=== PATIENT | male | born 1960 | race Asian ===

== ENCOUNTER 2017-11-21 16:06 | Inpatient (IN) | payer OTHER ==
[~2017-11-21] VITALS: Ht 172.7 cm; Wt 56.7 kg
[2017-11-21] VITALS (7 sets, daily range): BP systolic 120–155; BP diastolic 56–90
[2017-11-21] MEDS ORDERED: PROAIR HFA8.5 GM INH (16:22)
[2017-11-21] MEDS ORDERED: PREDNISONE10 M2 PO (16:22)
[2017-11-21] MEDS ORDERED: ZITHROMAX TRI-500 MG ORAL (16:22)
[2017-11-21] MEDS ORDERED: PHENERGAN SUPP25 MG ORAL (16:22)
[2017-11-21] MEDS ORDERED: Isovue-300 100ml vial INJ PRN (16:30)
[2017-11-21 17:01] LABS: BASOPHILS % (AUTO) 0.2 % (0.0-2.0); HEMATOCRIT 42.3 % (42.0-52.0); HEMOGLOBIN 14.7 G/DL (14.2-18.0); MEAN CORPUSCULAR VOLUME 92 FL (80-99); MONOCYTES % (AUTO) 4.1 % (1.0-10.0); NEUTROPHILS % (AUTO) 84.7 % (45.0-75.0); PLATELET COUNT 284 K/UL (150-450); RED CELL DISTRIBUTION WIDTH 11.8 % (11.6-14.8); WHITE BLOOD COUNT 8.4 K/UL (4.8-10.8)
--- NOTE | 2017-11-21 17:03 | Diagnostic Imaging Report ---
Indication: Abnormal chest x-ray seen at the doctor's office. Pneumothorax Comparison: None A single view chest radiograph was obtained. Findings: A large left pneumothorax demonstrated. There is no evidence of tension or shift of the mediastinum. The trachea is midline. Heart size is normal. Patient is asymptomatic. Right lung is clear. Bones are osteopenic. There is an old healed fracture of the left clavicle. Dr. Weston is aware of the results. IMPRESSION: Large left pneumothorax
[2017-11-21 17:09] LABS: ANION GAP 7 mmol/L (5-15); BLOOD UREA NITROGEN 17 mg/dL (7-18); CALCIUM 11.7 MG/DL (8.5-10.1); CARBON DIOXIDE 27 MMOL/L (21-32); CHLORIDE 107 MMOL/L (98-107); CREATININE 1.2 MG/DL (0.55-1.30); POTASSIUM 3.7 MMOL/L (3.5-5.1); SODIUM 141 MMOL/L (136-145)
[2017-11-21 17:22] LABS: ALANINE AMINOTRANSFERASE 27 U/L (12-78); ALBUMIN 3.4 G/DL (3.4-5.0); ALBUMIN/GLOBULIN RATIO 0.9 (1.0-2.7); ALKALINE PHOSPHATASE 172 U/L (46-116); ASPARTATE AMINO TRANSFERASE 16 U/L (15-37); BILIRUBIN,TOTAL 0.2 MG/DL (0.2-1.0); CKMB 0.5 NG/ML (0.0-3.6)
[2017-11-21] MEDS ORDERED: Lidocaine 1% Plain 30 ml INJ ONE (17:45)
[2017-11-21] MEDS ORDERED: PROMETHAZI6.25 MG/1 ORAL (19:09)
--- NOTE | 2017-11-21 19:19 | Emergency Room Report ---
History of Present Illness General Chief Complaint: Abnormal Labs Source: Patient Present Illness [facility] This patient was sent over by his primary care physician Dr. Bowman. He was being evaluated in the clinic and was found to have a pneumothorax on chest x- ray. He is sent in for further evaluation. He states that he has had some shortness of breath couple weeks ago. He states he feels fine today. He denies chest pain. He denies fever or chills. He has had cough and bronchitis like symptoms for the past 2 weeks. He was evaluated at an outpatient clinic earlier this week and was instructed to follow-up with his primary care physician. He does smoke tobacco. He has no other complaints. Allergies: Coded Allergies: No Known Allergies (Unverified , 11/21/17) Patient History Past Medical History: see triage record, asthma Social History: Reports: smoking; Denies: alcohol use, drug use Reviewed Nursing Documentation: PMH: Agreed; PSxH: Agreed Nursing Documentation-PMH Past Medical History: No History, Except For Review of Systems All Other Systems: negative except mentioned in HPI Physical Exam Vital Signs Date Time Temp Pulse Resp B/P (MAP) Pulse Ox O2 Delivery O2 Flow Rate FiO2 11/21/17 16:14 98.0 83 16 141/86 96 Room Air 98.1 Sp02 EP Interpretation: reviewed, normal General Appearance: no apparent distress, alert, GCS 15, non-toxic Head: normocephalic, atraumatic Eyes: bilateral eye normal inspection, bilateral eye PERRL ENT: hearing grossly normal, normal pharynx, no angioedema, normal voice Neck: full range of motion, supple/symm/no masses Respiratory: chest non-tender, lungs clear, no respiratory distress, no retraction, no accessory muscle use, speaking full sentences, other - No breath sound on L. lung manley. Cardiovascular #1: regular rate, rhythm, no edema Gastrointestinal: normal bowel sounds, non tender, soft, non-distended, no guarding, no rebound Rectal: deferred Musculoskeletal: back normal, gait/station normal, normal range of motion, non- tender Neurologic: alert, oriented x3, responsive, motor strength/tone normal, sensory intact, speech normal Psychiatric: judgement/insight normal, memory normal, mood/affect normal, no suicidal/homicidal ideation Skin: normal color, no rash, warm/dry, well hydrated Procedures Chest Tube Chest Tube : Consent: Verbal Chest Tube Location: midclavicular line superior to the 3rd Rib Chest Tube Procedure: betadine prep, sterile drapes applied, sterile dressing applied Anesthesia: 1% Lidocaine Volume Anesthetic (ccs): 5 Ramirez of Air [place]: Yes Number of Attempts: One Tube Drainage: see nurses notes Post Procedure CXR?: Yes Patient Tolerated: Well Complications: None Progress A thoracic vent kit was used to insert the thoracic catheter at the mid clavicular line just superior to the third rib in the standard fashion. There were no complications. The tubing was attached to a Pleur-evac system. Postprocedure chest x-ray shows inflation of the previously deflated lung. Medical Decision Making Diagnostic Impression: Primary Impression: Acute pneumothorax ER Course This patient presents with a spontaneous pneumothorax. This is a very large pneumothorax of about 80% of the left lung. A thoracic vent was placed without complication or incident. The lung reexpanded after the procedure. The tubing was connected to a Pleur-evac system. The patient will be admitted to the ICU step down for further monitoring. Also, after reinflation of the lung there was an area of mild opacification that could represent pneumonia. Therefore, I did give the patient a dose of IV antibiotics. He is admitted for further evaluation and treatment. This patient is critically ill. This patient required complex medical decision- making, aggressive intervention, extensive laboratory workup and monitoring. Critical care time: 40 minutes. Laboratory Tests Test 11/21/17 16:35 White Blood Count 8.4 K/UL (4.8-10.8) Red Blood Count 4.60 M/UL (4.70-6.10) L Hemoglobin 14.7 G/DL (14.2-18.0) Hematocrit 42.3 % (42.0-52.0) Mean Corpuscular Volume 92 FL (80-99) Mean Corpuscular Hemoglobin 31.9 PG (27.0-31.0) H Mean Corpuscular Hemoglobin Concent 34.7 G/DL (32.0-36.0) Red Cell Distribution Width 11.8 % (11.6-14.8) Platelet Count 284 K/UL (150-450) Mean Platelet Volume 6.8 FL (6.5-10.1) Neutrophils (%) (Auto) 84.7 % (45.0-75.0) H Lymphocytes (%) (Auto) 11.0 % (20.0-45.0) L Monocytes (%) (Auto) 4.1 % (1.0-10.0) Eosinophils (%) (Auto) 0.0 % (0.0-3.0) Basophils (%) (Auto) 0.2 % (0.0-2.0) Prothrombin Time 10.2 SEC (9.30-11.50) Prothrombin Time INR 1.0 (0.9-1.1) PTT 26 SEC (23-33) Sodium Level 141 MMOL/L (136-145) Potassium Level 3.7 MMOL/L (3.5-5.1) Chloride Level 107 MMOL/L (98-107) Carbon Dioxide Level 27 MMOL/L (21-32) Anion Gap 7 mmol/L (5-15) Blood Urea Nitrogen 17 mg/dL (7-18) Creatinine 1.2 MG/DL (0.55-1.30) Estimate Glomerular Filtration Rate > 60 mL/min (>60) Glucose Level 214 MG/DL (74-106) H Calcium Level 11.7 MG/DL (8.5-10.1) H Total Bilirubin 0.2 MG/DL (0.2-1.0) Aspartate Amino Transferase (AST) 16 U/L (15-37) Alanine Aminotransferase (ALT) 27 U/L (12-78) Alkaline Phosphatase 172 U/L (46-116) H Creatine Kinase MB 0.5 NG/ML (0.0-3.6) Troponin I 0.000 ng/mL (0.000-0.056) Total Protein 7.0 G/DL (6.4-8.2) Albumin 3.4 G/DL (3.4-5.0) Globulin 3.6 g/dL Albumin/Globulin Ratio 0.9 (1.0-2.7) L EKG Diagnostic Results Rate: normal Rhythm: NSR ST Segments: no acute changes Rhythm Strip Diag. Results EP Interpretation: yes Rate: 70's Rhythm: NSR, no PVC's, no ectopy Chest X-Ray Diagnostic Results Chest X-Ray Diagnostic Results : Chest X-Ray Ordered: Yes # of Views/Limited/Complete: 1 View Indication: Other - PTX EP Interpretation: Yes Interpretation: other - Large L. PTX Impression: Other - PTX Electronically Signed by: Dante Other X-Ray Diagnostic Results Other X-Ray Diagnostic Results : X-Ray ordered: Repeat CXR after Chest tube # of Views/Limited Vs Complete: 1 View Indication: Other - Procedure Interpretation: other - Reinflation of the L. lung Impression: Other - See above Last Vital Signs Date Time Temp Pulse Resp B/P (MAP) Pulse Ox O2 Delivery O2 Flow Rate FiO2 11/21/17 18:00 76 26 137/88 97 Room Air 11/21/17 16:14 98.0 98.1 Status: improved Disposition: ADMITTED INPATIENT Condition: Serious Referrals: Siddharth Bowman MD (PCP) Kimi Brewer DO Nov 21, 2017 19:19
[2017-11-22] VITALS: BP 116/71
[2017-11-22] MEDS ORDERED: Norco 5mg/325mg tab ORAL PRN ×2
[2017-11-22] MEDS ORDERED: Zolpidem 5mg tab ORAL PRN
[2017-11-22] MEDS ORDERED: Milk of Magnesia 30ml Ud ORAL PRN
[2017-11-22 04:00] VITALS: BP 119/76
[2017-11-22 08:00] VITALS: BP 125/78
--- NOTE | 2017-11-22 08:42 | Diagnostic Imaging Report ---
Indication: Post chest tube insertion Technique: One view of the chest Comparison: 2 hours earlier Findings: Interim placement of a left chest vent catheter exiting the first intercostal space, tip pointed medially. Interim complete resolution of previously demonstrated large left pneumothorax. The reexpanded left lung appears clear. The right lung and pleural space remain clear. Impression: Successful reexpansion of the left lung, status post chest vent placement This agrees with the preliminary interpretation provided overnight by [facility].
--- NOTE | 2017-11-22 08:49 | History & Physical ---
History and Physical History & Physicial 57 year old male presented to my office yesterday with shortness of breath. Patient was seen in the urgent care and given antibiotics and steroids. Patient had a cxr in the office confirming a large pneumothorax and sent to the ER at which point a theravent was placed with reexpansion patient denies any trauma, lung disease, or rib fracture PMH Asthma MEDS/ALLERGIES noted ROS all 10 points reviewed and otherwise negative PHYSICAL Sp02 EP Interpretation: reviewed, normal General Appearance: normal inspection, well appearing, no apparent distress, alert Head: normocephalic, atraumatic Eyes: bilateral eye normal inspection ENT: normal ENT inspection, no angioedema, normal voice Neck: normal inspection, full range of motion, supple, no meningismus, carotid 2+ Respiratory: decreased breath sounds, but clear Cardiovascular : regular rate, rhythm, no murmur without MRG Gastrointestinal: non tender, soft, non-distended, no guarding, no rebound Musculoskeletal: nonfocal Psychiatric: mood/affect normal Skin: left theravent in place connected to suction Laboratory Tests Test 11/21/17 16:35 White Blood Count 8.4 K/UL (4.8-10.8) Red Blood Count 4.60 M/UL (4.70-6.10) L Hemoglobin 14.7 G/DL (14.2-18.0) Hematocrit 42.3 % (42.0-52.0) Mean Corpuscular Volume 92 FL (80-99) Mean Corpuscular Hemoglobin 31.9 PG (27.0-31.0) H Mean Corpuscular Hemoglobin Concent 34.7 G/DL (32.0-36.0) Red Cell Distribution Width 11.8 % (11.6-14.8) Platelet Count 284 K/UL (150-450) Mean Platelet Volume 6.8 FL (6.5-10.1) Neutrophils (%) (Auto) 84.7 % (45.0-75.0) H Lymphocytes (%) (Auto) 11.0 % (20.0-45.0) L Monocytes (%) (Auto) 4.1 % (1.0-10.0) Eosinophils (%) (Auto) 0.0 % (0.0-3.0) Basophils (%) (Auto) 0.2 % (0.0-2.0) Prothrombin Time 10.2 SEC (9.30-11.50) Prothromb Time International Ratio 1.0 (0.9-1.1) Activated Partial Thromboplast Time 26 SEC (23-33) Sodium Level 141 MMOL/L (136-145) Potassium Level 3.7 MMOL/L (3.5-5.1) Chloride Level 107 MMOL/L (98-107) Carbon Dioxide Level 27 MMOL/L (21-32) Anion Gap 7 mmol/L (5-15) Blood Urea Nitrogen 17 mg/dL (7-18) Creatinine 1.2 MG/DL (0.55-1.30) Estimat Glomerular Filtration Rate > 60 mL/min (>60) Glucose Level 214 MG/DL (74-106) H Calcium Level 11.7 MG/DL (8.5-10.1) H Total Bilirubin 0.2 MG/DL (0.2-1.0) Aspartate Amino Transf (AST/SGOT) 16 U/L (15-37) Alanine Aminotransferase (ALT/SGPT) 27 U/L (12-78) Alkaline Phosphatase 172 U/L (46-116) H Creatine Kinase MB 0.5 NG/ML (0.0-3.6) Troponin I 0.000 ng/mL (0.000-0.056) Total Protein 7.0 G/DL (6.4-8.2) Albumin 3.4 G/DL (3.4-5.0) Globulin 3.6 g/dL Albumin/Globulin Ratio 0.9 (1.0-2.7) L IMPRESSION hypercalcemia pneumothorax, spontaneous consider bullous lung disease asthma shortness of breath PLAN CT chest free calcium theravent to suction surgical evaluation may need thoracic evaluation pending CT chest Siddharth Bowman MD Nov 22, 2017 08:49
--- NOTE | 2017-11-22 10:43 | Diagnostic Imaging Report ---
Clinical Indication: Shortness of breath Technique: IV administration nonionic contrast. Spiral acquisition obtained through the chest. Multiplanar reconstructions generated. Total dose length product 682.52 mGycm. CTDIvol(s) 15.98 mGy. Dose reduction achieved using automated exposure control Comparison: No comparison CT scans. Reference made to chest radiograph dated 11/21/2017 Findings: There is a thoracic vent catheter entering the first intercostal space, tip directed medially adjacent to the left upper mediastinum. There is a small amount of subcutaneous emphysema in the left upper chest wall adjacent to the vent catheter. No residual pneumothorax is evident. There is a small amount of pleural fluid on the left. Combination of dense consolidation and groundglass opacity is seen occupying most of the left lower lobe and a significant portion of the left upper lobe. This is much more extensive than would be expected based on prior chest radiograph. A few small blebs or bullae are seen in the left upper lobe. A small bullae or subpleural blebs are seen involving the right upper lobe, located both medially and laterally. There is some posterior dependent atelectasis at the right lung base. The right lung and pleural space are otherwise clear. The heart size is normal. There is a small anterior wall pericardial effusion, measuring up to 8 mm thick. No mediastinal or hilar mass or adenopathy. Included portions of the thyroid are unremarkable. No axillary or supraclavicular mass or adenopathy. There is an old healed fracture deformity of the anterior left third rib. The bones are otherwise unremarkable. The included upper abdominal anatomy is remarkable for the presence of a subcentimeter low-attenuation lesion within segment 4A of the liver. There is also a cyst in segment 3 Impression: Thoracic vent catheter, as described. No evidence of residual pneumothorax Extensive left upper and lower lobe parenchymal disease, which appears to have developed since previous day's chest radiograph. Appearance nonspecific but probably on the basis of reexpansion pulmonary edema given history of recently treated large pneumothorax A few small subpleural blebs or bullae are present bilaterally. This may be the source of the earlier pneumothorax Small left pleural effusion Posterior dependent atelectatic changes at the right lung base Small anterior wall pericardial effusion Incidental findings as noted, including old healed left third rib fracture deformity, left lobe liver cyst, subcentimeter left hepatic lobe low-attenuation lesion which most likely represents a benign simple cyst-no further follow-up necessary The CT scanner at [facility] is accredited by the [employer] and the scans are performed using protocols designed to limit radiation exposure to as low as reasonably achievable to attain images of sufficient resolution adequate for diagnostic evaluation.
[2017-11-22 12:00] VITALS: BP 129/84
--- NOTE | 2017-11-22 15:07 | Consultation ---
History of Present Illness General Date patient seen: Nov 22, 2017 Chief Complaint: Abnormal Labs Reason for Consultation: pneumothorax Present Illness HPI 57 year old male presented yesterday with SOB and was found to have large Left pneumothorax. Had thoravent placed in ED and good re-expansion noted. Admitted for care and management. Surgery called to evaluate and assist with chest tube management. Patient seen, chart reviewed, patient examined. States that he feels much better now and is comfortable. no SOB. mild discomfort from thoravent insertion. otherwise well. no n/v/f/c. labs okay. Allergies: Coded Allergies: No Known Allergies (Unverified , 11/21/17) Medication History Scheduled Albuterol Sulfate* (Proair Hfa*), 2 PUFFS INH Q6H, (Reported) Azithromycin (Zithromax Tri-Vicente), 250 MG ORAL DAILY, (Reported) Prednisone (Prednisone), 10 MG PO DAILY, (Reported) Scheduled PRN Promethazine Hcl (Promethazine Hcl*), 2 TSP ORAL Q8H PRN for For Cough, ( Reported) Patient History History Provided By: Patient, Medical Record, PMD Healthcare decision maker Resuscitation status Full Code Advanced Directive on File No Past Medical/Surgical History Past Medical/Surgical History: (1) Acute pneumothorax Review of Systems Constitutional: Denies: no symptoms, see HPI, chills, sweats, fever, malaise, weakness, other Eye: Denies: no symptoms, see HPI, eye pain, blurred vision, tearing, double vision, nose pain, nose congestion, acuity changes, discharge, other ENT: Denies: no symptoms, see HPI, ear pain, ear discharge, nose pain, nose congestion, throat pain, throat swelling, mouth pain, hearing loss, nasal discharge, other Respiratory: Reports: shortness of breath Cardiovascular: Denies: no symptoms, see HPI, chest pain, edema, palpitations, syncope, PND, other Gastrointestinal: Denies: no symptoms, see HPI, abdominal pain, constipation, diarrhea, nausea, vomiting, melena, hematemesis, other Genitourinary: Denies: no symptoms, see HPI, discharge, dysuria, frequency, hematuria, pain, retention, incontinence, urgency, vag bleed/dc, other Musculoskeletal: Denies: no symptoms, see HPI, back pain, gout, joint pain, joint swelling, muscle pain, muscle stiffness, other Skin: Denies: no symptoms, see HPI, rash, change in color, change in hair/nails , dryness, lesions, other Psychiatric: Denies: no symptoms, see HPI, prior hx, anxiety, depressed feelings, emotional problems, SI, HI, hallucinations, other Neurological: Denies: no symptoms, see HPI, headache, numbness, paresthesia, seizure, tingling, tremors, focal weakness, syncope, dizziness, other Endocrine: Denies: no symptoms, see HPI, excessive sweating, flushing, intolerance to temperature, increased thirst, increased urine, unexplained weight loss, other Hematologic/Lymphatic: Denies: no symptoms, see HPI, anemia, blood clots, easy bleeding, easy bruising, swollen glands, diathesis, other Physical Exam General Appearance: no apparent distress, alert Lines, tubes and drains: peripheral HEENT: normocephalic, atraumatic, mucous membranes moist, PERRL Neck: supple, normal inspection Respiratory/Chest: lungs clear, normal breath sounds, no respiratory distress, no accessory muscle use, chest tube Cardiovascular/Chest: normal peripheral pulses, normal rate, regular rhythm Abdomen: normal bowel sounds, non tender, soft, no organomegaly, no mass Extremities: normal range of motion, non-tender, normal inspection, no calf tenderness Skin Exam: normal pigmentation, warm/dry Neurologic: alert, oriented x 3, responsive Last 24 Hour Vital Signs Date Time Temp Pulse Resp B/P (MAP) Pulse Ox O2 Delivery O2 Flow Rate FiO2 11/22/17 12:00 Room Air Room Air 11/22/17 12:00 63 11/22/17 12:00 98.4 65 20 129/84 (99) 93 98.4 11/22/17 10:50 69 11/22/17 08:00 98.8 70 19 125/78 (94) 97 98.8 11/22/17 08:00 Nasal Cannula 2.0 Nasal Cannula 2.0 11/22/17 08:00 2.0 11/22/17 04:00 97.7 67 20 119/76 (90) 97 97.7 11/22/17 04:00 Room Air 2.0 Nasal Cannula 2.0 11/22/17 04:00 68 11/22/17 04:00 Nasal Cannula 2.0 Nasal Cannula 2.0 11/22/17 04:00 2.0 11/22/17 01:22 99.2 11/22/17 01:21 Nasal Cannula 2.0 Nasal Cannula 2.0 11/22/17 00:52 100.8 11/22/17 00:00 Room Air 2.0 Nasal Cannula 2.0 11/22/17 00:00 100.8 89 20 116/71 (86) 90 100.8 11/22/17 00:00 93 11/21/17 20:00 98.2 72 20 153/87 (109) 95 98.2 11/21/17 20:00 Room Air 2.0 Nasal Cannula 2.0 11/21/17 19:40 98.0 77 25 135/90 95 Room Air 98.0 11/21/17 19:40 98.0 77 25 135/90 95 Room Air 208.4 11/21/17 18:55 74 24 128/77 99 Room Air 11/21/17 18:35 75 20 120/78 98 Room Air 11/21/17 18:30 76 26 Room Air 11/21/17 18:00 76 26 137/88 97 Room Air 11/21/17 17:00 79 20 140/85 97 Room Air 11/21/17 16:43 79 17 Room Air 11/21/17 16:20 79 17 155/56 95 Room Air 11/21/17 16:14 98.0 83 16 141/86 96 Room Air 98.1 Intake and Output 11/21/17 11/22/17 19:00 07:00 Intake Total 865 ml Output Total 600 ml Balance 265 ml Intake Oral 240 ml IV Total 625 ml Output Urine Total 600 ml # Voids 1 Laboratory Tests Test 11/21/17 16:35 11/22/17 10:20 White Blood Count 8.4 K/UL (4.8-10.8) Red Blood Count 4.60 M/UL (4.70-6.10) L Hemoglobin 14.7 G/DL (14.2-18.0) Hematocrit 42.3 % (42.0-52.0) Mean Corpuscular Volume 92 FL (80-99) Mean Corpuscular Hemoglobin 31.9 PG (27.0-31.0) H Mean Corpuscular Hemoglobin Concent 34.7 G/DL (32.0-36.0) Red Cell Distribution Width 11.8 % (11.6-14.8) Platelet Count 284 K/UL (150-450) Mean Platelet Volume 6.8 FL (6.5-10.1) Neutrophils (%) (Auto) 84.7 % (45.0-75.0) H Lymphocytes (%) (Auto) 11.0 % (20.0-45.0) L Monocytes (%) (Auto) 4.1 % (1.0-10.0) Eosinophils (%) (Auto) 0.0 % (0.0-3.0) Basophils (%) (Auto) 0.2 % (0.0-2.0) Prothrombin Time 10.2 SEC (9.30-11.50) Prothromb Time International Ratio 1.0 (0.9-1.1) Activated Partial Thromboplast Time 26 SEC (23-33) Sodium Level 141 MMOL/L (136-145) Potassium Level 3.7 MMOL/L (3.5-5.1) Chloride Level 107 MMOL/L (98-107) Carbon Dioxide Level 27 MMOL/L (21-32) Anion Gap 7 mmol/L (5-15) Blood Urea Nitrogen 17 mg/dL (7-18) Creatinine 1.2 MG/DL (0.55-1.30) Estimat Glomerular Filtration Rate > 60 mL/min (>60) Glucose Level 214 MG/DL (74-106) H Calcium Level 11.7 MG/DL (8.5-10.1) H Total Bilirubin 0.2 MG/DL (0.2-1.0) Aspartate Amino Transf (AST/SGOT) 16 U/L (15-37) Alanine Aminotransferase (ALT/SGPT) 27 U/L (12-78) Alkaline Phosphatase 172 U/L (46-116) H Creatine Kinase MB 0.5 NG/ML (0.0-3.6) Troponin I 0.000 ng/mL (0.000-0.056) Total Protein 7.0 G/DL (6.4-8.2) Albumin 3.4 G/DL (3.4-5.0) Globulin 3.6 g/dL Albumin/Globulin Ratio 0.9 (1.0-2.7) L Erythrocyte Sedimentation Rate 19 MM/HR (0-20) Calcium (Send out) Pending Ionized Calcium (Measured) 1.43 mmol/L (1.10-1.35) H Carcinoembryonic Antigen Pending Parathyroid Hormone (Intact) Pending Height (Feet): 5 Height (Inches): 8.00 Weight (Pounds): 125 Medications Current Medications Medications (Trade) Dose Ordered Sig/Boogie Route PRN Reason Start Time Stop Time Status Last Admin Dose Admin Acetaminophen (Tylenol) 650 mg Q4H PRN ORAL Mild Pain/Temp > 100.5 11/22/17 00:00 12/22/17 00:00 11/22/17 00:52 Acetaminophen/ Hydrocodone Bitart ([place] 5/325) 1 tab Q4H PRN ORAL Moderate Pain (Pain Scale 4-6) 11/22/17 00:00 11/29/17 00:00 Acetaminophen/ Hydrocodone Bitart ([place] 5/325) 2 tab Q4H PRN ORAL Severe Breakthru Pain (>7) 11/22/17 00:00 11/29/17 00:00 Al Hydroxide/Mg Hydroxide (Mylanta) 30 ml FOUR TIMES A DAY PRN ORAL Per rx protocol 11/22/17 00:00 12/22/17 00:00 Iopamidol (Isovue-300 100ml) 100 ml NOW PRN INJ Radiology Procedure 11/21/17 16:30 11/23/17 16:24 Magnesium Hydroxide (Mom) 30 ml DAILYPRN PRN ORAL Constipation 11/22/17 00:00 12/22/17 00:00 Pantoprazole (Protonix) 40 mg DAILY ORAL 11/22/17 09:00 12/22/17 08:59 11/22/17 08:50 Sodium Chloride 1,000 ml @ 100 mls/hr Q10H IV 11/22/17 00:00 12/22/17 00:00 11/22/17 09:44 Zolpidem Tartrate (Ambien) 5 mg HSPRN PRN ORAL Insomnia 11/22/17 00:00 11/29/17 00:00 Assessment/Plan Problem List: (1) Acute pneumothorax Assessment & Plan: Thoracic vent catheter, as described. No evidence of residual pneumothorax Extensive left upper and lower lobe parenchymal disease, which appears to have developed since previous day's chest radiograph. Appearance nonspecific but probably on the basis of reexpansion pulmonary edema given history of recently treated large pneumothorax A few small subpleural blebs or bullae are present bilaterally. This may be the source of the earlier pneumothorax 57M spontaneous left PTX likely etiology subpleural bleb as noted on CT. afebrile, HD stable, doing well. Keep tube to suction for today Will place tube to water seal tomorrow morning after AM CXR If stable on water seal will plan to d/c mack[facility] thank you for this consultation. will follow with recs. ICD Codes: J93.83 - Other pneumothorax SNOMED: [id number] Status: stable FemiTyree Nov 22, 2017 15:07
[2017-11-22 16:00] VITALS: BP 133/81
--- NOTE | 2017-11-22 19:16 | Cardiology Report ---
APPROVED REPORT EKG Measurement Heart [id number] AL [id number] Normal sinus rhythm Nonspecific T wave abnormality Abnormal ECG
[2017-11-22 20:00] VITALS: BP 129/76
[2017-11-23] VITALS: BP 142/83
[2017-11-23 04:00] VITALS: BP 128/85
[2017-11-23 05:25] LABS: BASOPHILS % (AUTO) 0.8 % (0.0-2.0); EOSINOPHILS % (AUTO) 2.2 % (0.0-3.0); HEMATOCRIT 42.7 % (42.0-52.0); HEMOGLOBIN 14.9 G/DL (14.2-18.0); LYMPHOCYTES % (AUTO) 24.2 % (20.0-45.0); MEAN CORPUSCULAR VOLUME 92 FL (80-99); NEUTROPHILS % (AUTO) 66.8 % (45.0-75.0); PLATELET COUNT 238 K/UL (150-450); RED BLOOD COUNT 4.64 M/UL (4.70-6.10); RED CELL DISTRIBUTION WIDTH 11.7 % (11.6-14.8); WHITE BLOOD COUNT 9.6 K/UL (4.8-10.8)
[2017-11-23 05:45] LABS: ANION GAP 7 mmol/L (5-15); BLOOD UREA NITROGEN 15 mg/dL (7-18); CALCIUM 11.3 MG/DL (8.5-10.1); CARBON DIOXIDE 24 MMOL/L (21-32); CHLORIDE 111 MMOL/L (98-107); CREATININE 0.8 MG/DL (0.55-1.30); POTASSIUM 4.1 MMOL/L (3.5-5.1); SODIUM 142 MMOL/L (136-145)
[2017-11-23 08:00] VITALS: BP 140/81
--- NOTE | 2017-11-23 08:52 | General Progress Note ---
Assessment/Plan Assessment/Plan IMPRESSION hypercalcemia pneumothorax, spontaneous asthma shortness of breath pulmonary infiltrates bleb disease PLAN CT chest noted free calcium elevated- aredia d/w surgery- possible dc of chest tube impression, plan, and exam edited and reviewed in detail care discussed with RN Subjective Allergies: Coded Allergies: No Known Allergies (Unverified , 11/21/17) Subjective better CT reviewed residual infiltrates ?reexpansion Objective Last 24 Hour Vital Signs Date Time Temp Pulse Resp B/P (MAP) Pulse Ox O2 Delivery O2 Flow Rate FiO2 11/23/17 08:00 Nasal Cannula 2.0 Nasal Cannula 2.0 11/23/17 08:00 98.6 77 17 140/81 (100) 94 98.6 11/23/17 04:00 64 11/23/17 04:00 Nasal Cannula 2.0 Room Air 11/23/17 04:00 97.9 78 16 128/85 (99) 98 97.9 11/23/17 00:00 62 11/23/17 00:00 Nasal Cannula 2.0 Room Air 11/23/17 00:00 98.2 71 18 142/83 (102) 98 98.2 11/22/17 21:00 Nasal Cannula 2.0 Room Air 11/22/17 20:00 66 11/22/17 20:00 98.4 65 16 129/76 (93) 99 98.4 11/22/17 20:00 Nasal Cannula 2.0 Room Air 11/22/17 16:00 Nasal Cannula 2.0 Room Air 11/22/17 16:00 98.0 66 18 133/81 (98) 97 98.0 11/22/17 16:00 64 11/22/17 12:00 Room Air Room Air 11/22/17 12:00 63 11/22/17 12:00 98.4 65 20 129/84 (99) 93 98.4 11/22/17 10:50 69 Intake and Output 11/22/17 11/23/17 19:00 07:00 Intake Total 1918.337 ml 890 ml Output Total 950 ml 1875 ml Balance 968.337 ml -985 ml Intake Oral 720 ml IV Total 1198.337 ml 890 ml Output Urine Total 950 ml 1875 ml # Voids 2 Laboratory Tests 11/22/17 10:20: Erythrocyte Sedimentation Rate 19, Calcium (Send out) [Pending], Ionized Calcium (Measured) 1.43H, Carcinoembryonic Antigen 6.0H, Parathyroid Hormone ( Intact) [Pending] 11/23/17 04:51: White Blood Count 9.6, Red Blood Count 4.64L, Hemoglobin 14.9, Hematocrit 42.7, Mean Corpuscular Volume 92, Mean Corpuscular Hemoglobin 32.0H, Mean Corpuscular Hemoglobin Concent 34.8, Red Cell Distribution Width 11.7, Platelet Count 238, Mean Platelet Volume 7.8, Neutrophils (%) (Auto) 66.8, Lymphocytes (%) (Auto) 24.2, Monocytes (%) (Auto) 6.0, Eosinophils (%) (Auto) 2.2, Basophils (%) (Auto ) 0.8, Sodium Level 142, Potassium Level 4.1, Chloride Level 111H, Carbon Dioxide Level 24, Anion Gap 7, Blood Urea Nitrogen 15, Creatinine 0.8, Estimat Glomerular Filtration Rate > 60, Glucose Level 130H, Calcium Level 11.3H Height (Feet): 5 Height (Inches): 8.00 Weight (Pounds): 125 Objective WDWN NAD clear breath sounds bilaterally without rhonchi or wheeze [id number] without MRG NABS nontender no HSM no CCE nonfocal Siddharth Bowman MD Nov 23, 2017 08:52
--- NOTE | 2017-11-23 09:01 | Diagnostic Imaging Report ---
. Indication: Shortness of breath, status post pneumothorax treatment Technique: One view of the chest Comparison: 11/21/2017 Findings: Interim development of parenchymal opacities in the left perihilar and infrahilar region and upper lobe, corresponding to findings reported on recent CT scan 11/22/2017. Left chest vent catheter is again demonstrated. No pneumothorax is evident. The right lung and pleural space remain clear. Impression: Left lung opacities, corresponding to findings on previous day's chest CT, developing since 11/21/2017, most likely on the basis of reexpansion pulmonary edema. Pneumonia also a possibility. Other findings as noted
[2017-11-23] MEDS ORDERED: Pamidronate Disodium Inj 60 MG in Sodium Chloride 500ML 550 ML IVPB SCH (10:00)
[2017-11-23 11:46] VITALS: BP 139/90
--- NOTE | 2017-11-23 11:57 | General Surgery Progress Note ---
General Surgery-Progress Note Subjective Symptoms: improved, pain absent, tolerating diet, passing flatus, BM Additional Comments doing well. no acute events. comfortable. CXR okay Objective Last 24 Hour Vital Signs Date Time Temp Pulse Resp B/P (MAP) Pulse Ox O2 Delivery O2 Flow Rate FiO2 11/23/17 11:46 98.2 73 18 139/90 (106) 94 98.2 11/23/17 08:00 Nasal Cannula 2.0 Nasal Cannula 2.0 11/23/17 08:00 72 11/23/17 08:00 98.6 77 17 140/81 (100) 94 98.6 11/23/17 04:00 64 11/23/17 04:00 Nasal Cannula 2.0 Room Air 11/23/17 04:00 97.9 78 16 128/85 (99) 98 97.9 11/23/17 00:00 62 11/23/17 00:00 Nasal Cannula 2.0 Room Air 11/23/17 00:00 98.2 71 18 142/83 (102) 98 98.2 11/22/17 21:00 Nasal Cannula 2.0 Room Air 11/22/17 20:00 66 11/22/17 20:00 98.4 65 16 129/76 (93) 99 98.4 11/22/17 20:00 Nasal Cannula 2.0 Room Air 11/22/17 16:00 Nasal Cannula 2.0 Room Air 11/22/17 16:00 98.0 66 18 133/81 (98) 97 98.0 11/22/17 16:00 64 11/22/17 12:00 Room Air Room Air 11/22/17 12:00 63 11/22/17 12:00 98.4 65 20 129/84 (99) 93 98.4 I&O Intake and Output 11/22/17 11/23/17 19:00 07:00 Intake Total 1918.337 ml 890 ml Output Total 950 ml 1875 ml Balance 968.337 ml -985 ml Intake Oral 720 ml IV Total 1198.337 ml 890 ml Output Urine Total 950 ml 1875 ml # Voids 2 Wound: clean Drains: other Cardiovascular: RSR Respiratory: clear Abdomen: soft, flat, non-tender, present bowel sounds Extremities: no edema, no tenderness, no cyanosis Laboratory Tests Test 11/23/17 04:51 White Blood Count 9.6 K/UL (4.8-10.8) Red Blood Count 4.64 M/UL (4.70-6.10) L Hemoglobin 14.9 G/DL (14.2-18.0) Hematocrit 42.7 % (42.0-52.0) Mean Corpuscular Volume 92 FL (80-99) Mean Corpuscular Hemoglobin 32.0 PG (27.0-31.0) H Mean Corpuscular Hemoglobin Concent 34.8 G/DL (32.0-36.0) Red Cell Distribution Width 11.7 % (11.6-14.8) Platelet Count 238 K/UL (150-450) Mean Platelet Volume 7.8 FL (6.5-10.1) Neutrophils (%) (Auto) 66.8 % (45.0-75.0) Lymphocytes (%) (Auto) 24.2 % (20.0-45.0) Monocytes (%) (Auto) 6.0 % (1.0-10.0) Eosinophils (%) (Auto) 2.2 % (0.0-3.0) Basophils (%) (Auto) 0.8 % (0.0-2.0) Sodium Level 142 MMOL/L (136-145) Potassium Level 4.1 MMOL/L (3.5-5.1) Chloride Level 111 MMOL/L (98-107) H Carbon Dioxide Level 24 MMOL/L (21-32) Anion Gap 7 mmol/L (5-15) Blood Urea Nitrogen 15 mg/dL (7-18) Creatinine 0.8 MG/DL (0.55-1.30) Estimat Glomerular Filtration Rate > 60 mL/min (>60) Glucose Level 130 MG/DL (74-106) H Calcium Level 11.3 MG/DL (8.5-10.1) H Plan Problems: (1) Acute pneumothorax Assessment & Plan: Thoracic vent catheter, as described. No evidence of residual pneumothorax Extensive left upper and lower lobe parenchymal disease, which appears to have developed since previous day's chest radiograph. Appearance nonspecific but probably on the basis of reexpansion pulmonary edema given history of recently treated large pneumothoraxA few small subpleural blebs or bullae are present bilaterally. This may be the source of the earlier pneumothorax 57M spontaneous left PTX likely etiology subpleural bleb as noted on CT. afebrile, HD stable, doing well. Tube to water seal. Ambulate and out of bed. CXR in 6 hrs If stable on water seal will plan to d/c [facility] thank you for this consultation. will follow with recs. Tyree Kahn Nov 23, 2017 11:57
[2017-11-23 16:00] VITALS: BP 135/73
[2017-11-23 20:00] VITALS: BP 150/85
--- NOTE | 2017-11-23 20:48 | General Progress Note ---
Progress Note Progress Note Surgery: cxr stable on water seal thoravent removed at bedside without complication AM CXR thank you Tyree Kahn Nov 23, 2017 20:48
[2017-11-24] VITALS: BP 142/85
[2017-11-24 04:00] VITALS: BP 132/75
[2017-11-24 06:32] LABS: ANION GAP 8 mmol/L (5-15); BLOOD UREA NITROGEN 13 mg/dL (7-18); CALCIUM 10.9 MG/DL (8.5-10.1); CARBON DIOXIDE 23 MMOL/L (21-32); CHLORIDE 109 MMOL/L (98-107); CREATININE 0.8 MG/DL (0.55-1.30); POTASSIUM 3.8 MMOL/L (3.5-5.1); SODIUM 140 MMOL/L (136-145)
[2017-11-24 08:00] VITALS: BP 140/83
--- NOTE | 2017-11-24 08:24 | Diagnostic Imaging Report ---
Indication: Shortness breath, pneumothorax, chest tube placed to water seal Technique: One view of the chest Comparison: 10 hours earlier Findings: No evidence of recurrent pneumothorax demonstrated. There is slight improvement of previously demonstrated parenchymal opacity on the left. Right lung bilateral pleural spaces remain clear Impression: No evidence of recurrent pneumothorax Slightly improved pulmonary edema
--- NOTE | 2017-11-24 08:34 | General Progress Note ---
Assessment/Plan Assessment/Plan IMPRESSION hypercalcemia pneumothorax, spontaneous asthma shortness of breath pulmonary infiltrates bleb disease PLAN CT chest noted free calcium elevated- aredia given PTH pending elevated CEA, will need outpatient work up d/w surgery- possible dc of chest tube and dc home today impression, plan, and exam edited and reviewed in detail care discussed with RN Subjective Allergies: Coded Allergies: No Known Allergies (Unverified , 11/21/17) Subjective cxr improved no sob d/w surgery Objective Last 24 Hour Vital Signs Date Time Temp Pulse Resp B/P (MAP) Pulse Ox O2 Delivery O2 Flow Rate FiO2 11/24/17 04:00 74 11/24/17 04:00 Nasal Cannula 2.0 11/24/17 04:00 99.7 73 18 132/75 (94) 98 99.7 11/24/17 00:00 80 11/24/17 00:00 Nasal Cannula 2.0 11/24/17 00:00 98.1 84 19 142/85 (104) 96 98.1 11/23/17 20:39 99.5 99.5 11/23/17 20:00 Room Air 11/23/17 20:00 80 11/23/17 20:00 101.7 79 18 150/85 (106) 97 101.7 11/23/17 17:00 76 11/23/17 16:00 Room Air Room Air 11/23/17 16:00 98.8 72 18 135/73 (93) 98 98.8 11/23/17 13:00 78 11/23/17 12:00 Room Air Room Air 11/23/17 11:46 98.2 73 18 139/90 (106) 94 98.2 Intake and Output 11/23/17 11/24/17 19:00 07:00 Intake Total 2068.327 ml 1133 ml Output Total 1850 ml 1150 ml Balance 218.327 ml -17 ml Intake Oral 720 ml 240 ml IV Total 1348.327 ml 893 ml Output Urine Total 1850 ml 1150 ml Laboratory Tests 11/24/17 04:48: Sodium Level 140, Potassium Level 3.8, Chloride Level 109H, Carbon Dioxide Level 23, Anion Gap 8, Blood Urea Nitrogen 13, Creatinine 0.8, Estimat Glomerular Filtration Rate > 60, Glucose Level 119H, Calcium Level 10.9H Height (Feet): 5 Height (Inches): 8.00 Weight (Pounds): 125 Objective WDWN NAD clear breath sounds bilaterally without rhonchi or wheeze thoracic vent [id number] without MRG NABS nontender no HSM no CCE nonfocal Siddharth Bowman MD Nov 24, 2017 08:34
--- NOTE | 2017-11-24 08:50 | General Surgery Progress Note ---
General Surgery-Progress Note Subjective Additional Comments thoravent removed last night after follow up cxr. cxr stable this AM without recurrence. Objective Last 24 Hour Vital Signs Date Time Temp Pulse Resp B/P (MAP) Pulse Ox O2 Delivery O2 Flow Rate FiO2 11/24/17 04:00 74 11/24/17 04:00 Nasal Cannula 2.0 11/24/17 04:00 99.7 73 18 132/75 (94) 98 99.7 11/24/17 00:00 80 11/24/17 00:00 Nasal Cannula 2.0 11/24/17 00:00 98.1 84 19 142/85 (104) 96 98.1 11/23/17 20:39 99.5 99.5 11/23/17 20:00 Room Air 11/23/17 20:00 80 11/23/17 20:00 101.7 79 18 150/85 (106) 97 101.7 11/23/17 17:00 76 11/23/17 16:00 Room Air Room Air 11/23/17 16:00 98.8 72 18 135/73 (93) 98 98.8 11/23/17 13:00 78 11/23/17 12:00 Room Air Room Air 11/23/17 11:46 98.2 73 18 139/90 (106) 94 98.2 I&O Intake and Output 11/23/17 11/24/17 19:00 07:00 Intake Total 2068.327 ml 1133 ml Output Total 1850 ml 1150 ml Balance 218.327 ml -17 ml Intake Oral 720 ml 240 ml IV Total 1348.327 ml 893 ml Output Urine Total 1850 ml 1150 ml Wound: clean Drains: none Cardiovascular: RSR Respiratory: clear Abdomen: soft Extremities: no edema Laboratory Tests Test 11/24/17 04:48 Sodium Level 140 MMOL/L (136-145) Potassium Level 3.8 MMOL/L (3.5-5.1) Chloride Level 109 MMOL/L (98-107) H Carbon Dioxide Level 23 MMOL/L (21-32) Anion Gap 8 mmol/L (5-15) Blood Urea Nitrogen 13 mg/dL (7-18) Creatinine 0.8 MG/DL (0.55-1.30) Estimat Glomerular Filtration Rate > 60 mL/min (>60) Glucose Level 119 MG/DL (74-106) H Calcium Level 10.9 MG/DL (8.5-10.1) H Plan Problems: (1) Acute pneumothorax Assessment & Plan: Thoracic vent catheter, as described. No evidence of residual pneumothorax Extensive left upper and lower lobe parenchymal disease, which appears to have developed since previous day's chest radiograph. Appearance nonspecific but probably on the basis of reexpansion pulmonary edema given history of recently treated large pneumothoraxA few small subpleural blebs or bullae are present bilaterally. This may be the source of the earlier pneumothorax 57M spontaneous left PTX likely etiology subpleural bleb as noted on CT. afebrile, HD stable, doing well. chest tube removed. cxr stable since -okay to d/c from surgical standpoint -leave dressings for 24-48hrs then remove thank you for this consultation. will follow with recs. Tyree Kanh Nov 24, 2017 08:50
[2017-11-24 12:00] VITALS: BP 153/86
--- NOTE | 2017-11-24 12:52 | Diagnostic Imaging Report ---
Indication: Shortness of breath Technique: One view of the chest Comparison: 11/23/2017 Findings: Interim removal of previously demonstrated left chest vent catheter. Interstitial and faint hazy opacities are again demonstrated in the left mid and upper lung, likely reflecting parenchymal opacities described on recent CT scan, overall unchanged. The pleural spaces are clear. The right lung is clear. There is no evidence of recurrent pneumothorax. The heart size is normal Impression: No evidence of recurrent pneumothorax, status post chest vent removal Unchanged parenchymal opacities on the left, previously thought likely on the basis of reexpansion pulmonary edema
[2017-11-24] MEDS ORDERED: Tubing IV Secondary IV ONE (13:14)
--- NOTE | 2017-11-27 10:04 | Discharge Summary ---
Discharge Summary Discharge Summary _ DATE OF ADMISSION: 11/21/2013 DATE OF DISCHARGE: 11/24/2017 REASON FOR ADMISSION: 57 years old male with history of asthma , presented initially to the primary care provider office with shortness of breath. Patient was seen in urgent care and was given antibiotic and steroid . Patient had chest x-ray in the office which confirmed large left acute pneumothorax . Patient was sent to emergency department for further evaluation. In emergency department thoracic vent was placed and attached to Pleur-evac suction. Chest x-ray post-insertion confirmed reexpansion of the left lung. Laboratory workup was unremarkable. Patient admitted with diagnosis of acute spontaneous pneumothorax, shortness of breath, asthma, possible bullous lung disease. CONSULTANTS: surgery Dr. Kahn [facility] COURSE: Patient admitted to direct observational unit. Thoracic vent continued to Pleura-vac suction. CT chest was ordered to assess for possible bullous disease. CT of the chest showed thoracic vent, no evidence of residual pneumothorax. Extensive left upper and lower lobe parenchymal disease disease. Appears nonspecific, likely pulmonary edema, given history of recently treated large pneumothorax. Noted few small subpleural blebs or bullae bilaterally. Probably source of the earlier pneumothorax. Surgeon closely followed . Supplemental oxygen and pulmonary toilet provided as needed. Patient was followed up with a daily chest x-ray while having thoracic vent in. Thoracic vent changed to water seal . After last chest x-ray, revealing no pneumothorax , chest tube was discontinued by surgeon. Surgeon cleared patient for discharge. During the patient's stay in the hospital, noted elevated calcium. Ionized calcium was elevated as well. Patient received Aredia. PTH pending. Also noted elevated CEA. Patient will need outpatient workup for elevated CEA. Symptomatic care provided. GI prophylaxis provided. Pain management was addressed. Bowel regimen instituted. Patient clinically improved. Acute spontaneous pneumothorax resolved. Patient was stable for discharge home with outpatient follow-up with primary care provider in one week FINAL DIAGNOSES: Acute spontaneous left-sided pneumothorax Asthma Hypercalcemia Bleb disease Elevated CEA DISCHARGE MEDICATIONS: List of medication was sent with patient DISCHARGE INSTRUCTIONS: Patient was discharged home with Follow up with primary care provider in one week. Outpatient workup for elevated CEA I have been assigned to dictate discharge summary for this account. I was not involved in the patient's management. Krista Boo NP Nov 27, 2017 10:04
== END 2017-11-24 13:15 | disposition home or self-care (01) | DRG 201 ==
LOC: EMR 17:09 → 2W 17:48 → EDBEDREQ 18:47
PROC: 0W9B30Z Drainage of Left Pleural Cavity with Drainage Device, Percutaneous Approach (ICD-10-PCS; principal; 2017-11-21)
DX: J93.83 Other pneumothorax (principal); J45.909 Unspecified asthma, uncomplicated; E83.52 Hypercalcemia; R97.0 Elevated carcinoembryonic antigen [CEA]; R23.8 Other skin changes; J43.9 Emphysema, unspecified
CPT/HCPCS: 31500; 36415; 71045; 71260; 80048; 80053; 82330; 82378; 82553; 83970; 84484; 85025; 85610; 85651; 85730; 93005; 99291; J2430